=== PATIENT | female | born 1980 | race Caucasian/White ===

== ENCOUNTER 2016-08-19 21:03 | Emergency (ER) | payer OTHER ==
[~2016-08-19] VITALS: Ht 170.2 cm; Wt 137.0 kg
[~2016-08-19 21:03] MED LIST: ALL DAY ALLERGY10 M2 PO; ATARAX,VISTARIL25 MG PO; BENTYL20 MG PO; BUPROPION XL300 MG PO; DIABETA2.5 MG PO; GEODON80 MG PO; GLYBURIDE2.5 MG PO; Geodon PO; KENALOG,ARISTOC80 G1 TP; LATUDA40 MG PO; LEVITRA; MELOXICAM7.5 MG PO; METFORMIN HCL1000 MG PO; MICRONASE2.5 MG PO; MYCOSTATIN 100,60 ML PO; Motrin PO; NAPROSYN500 MG PO; NORCO 5/3251 TABLET PO; PEPCID20 MG PO; PREDNISONE20 MG PO; Percocet 5/325,Endoc PO; RISPERIDONE2 MG PO; SERTRALINE HCL50 MG PO; ZOLOFT25 MG PO; latuda
[2016-08-19 21:39] LABS: ADD MIUA? NO; BILIRUBIN NEGATIVE; BLOOD NEGATIVE; COLOR STRAW ((YELLOW)); GLUCOSE (STRIP) NEGATIVE; KETONES NEGATIVE; LEUKOCYTES NEGATIVE; NITRITE NEGATIVE; PROTEIN (STRIP) NEGATIVE; SPECIFIC GRAVITY 1.008 (1.000-1.030); UCUL ADDED? NO; UROBILINOGEN 0.2 MG/DL (0.2-1.0)
[2016-08-19 21:40] LABS: INTERNAL CONTROL VALID? YES
[2016-08-19 22:00] LABS: HEMATOCRIT 39.9 % (36.0-46.0); MCH 27.5 PG (29.0-34.0); MCHC 32.8 G/DL (30.0-36.0); MCV 83.8 FL (83-99); MEAN PLAT.VOLUME 9.8 uM^3 (9.5-12.4); PLATELET COUNT 207 K/uL (156-360); RBC DIS.WIDTH-CV 14.3 % (11.8-14.6); RBC DIS.WIDTH-SD 43.7 % (39-53); RED BLOOD COUNT 4.76 M/uL (3.80-5.20); WHITE BLOOD COUNT 8.5 K/uL (4.1-10.2)
[2016-08-19 23:04] LABS: ANION GAP 9 MEQ/L (2-14); CHLORIDE 104 MEQ/L (99-109); POTASSIUM 3.9 MEQ/L (3.7-5.4); SAMPLE HEMOLYSIS CHECK 0; SAMPLE ICTERIC CHECK 0; SAMPLE LIPEMIA CHECK 0; SODIUM 137 MEQ/L (136-147); TOTAL BILIRUBIN 0.6 MG/DL (0.0-1.0)
[2016-08-19 23:09] LABS: ALKALINE PHOSPHATASE 59 IU/L (3-129); GFR ESTIMATE (CALCULATED) > 59 mL/min/; GLUCOSE 119 mg/dL (70-99); LIPASE 16 U/L (1.0-51.0); UREA NITROGEN (BUN) 11 mg/dL (9-23)
[2016-08-20] MEDS ORDERED: NAPROSYN500 MG PO (00:16)
[2016-08-20 00:45] LABS: CREATINE KINASE 65 IU/L (1-294)
[2016-08-20 01:16] VITALS: BP 116/65
== END 2016-08-20 01:23 | disposition home or self-care (01) ==
LOC: EME 21:03
PROVIDERS: Physician Assistant
DX: R10.817 Generalized abdominal tenderness (principal); M54.9 Dorsalgia, unspecified; R03.0 Elevated blood-pressure reading, without diagnosis of hypertension; M79.1 Myalgia; K57.30 Diverticulosis of large intestine without perforation or abscess without bleeding; F32.9 Major depressive disorder, single episode, unspecified; F20.9 Schizophrenia, unspecified; E11.9 Type 2 diabetes mellitus without complications; F17.200 Nicotine dependence, unspecified, uncomplicated; Z79.84 Long term (current) use of oral hypoglycemic drugs
CPT/HCPCS: 74176; 80053; 81003; 82550; 83690; 84703; 85027; 87493; 99281; 99284; J1885

== ENCOUNTER 2016-11-19 11:58 | Emergency (ER) | payer OTHER ==
[~2016-11-19] VITALS: Ht 172.7 cm; Wt 138.9 kg
[2016-11-19 12:23] LABS: POINT-OF-CARE METER ID UU13113778
[2016-11-19 13:26] LABS: MCH 27.4 PG (29.0-34.0); MCHC 31.8 G/DL (30.0-36.0); MCV 86.1 FL (83-99); MEAN PLAT.VOLUME 9.6 uM^3 (9.5-12.4); PLATELET COUNT 177 K/uL (156-360); RBC DIS.WIDTH-CV 14.6 % (11.8-14.6); RBC DIS.WIDTH-SD 46.1 % (39-53); RED BLOOD COUNT 4.53 M/uL (3.80-5.20); WHITE BLOOD COUNT 6.3 K/uL (4.1-10.2)
[2016-11-19 13:34] LABS: CHLORIDE 107 mEq/L (99-109); POTASSIUM 4.3 mEq/L (3.7-5.4); SODIUM 140 mEq/L (136-147)
[2016-11-19 13:36] LABS: GLUCOSE 121 mg/dL (70-99)
[2016-11-19 13:38] LABS: ANION GAP 6 MEQ/L (2-14)
[2016-11-19 13:40] LABS: GFR ESTIMATE (CALCULATED) > 59 mL/min/
[2016-11-19 13:41] LABS: UREA NITROGEN (BUN) 9 mg/dL (9-23)
[2016-11-19 13:46] LABS: TROP-I INTERPRETATION NEGATIVE; TROPONIN-I < 0.01 ng/mL (0.0-0.30)
[2016-11-19 17:01] LABS: TROP-I INTERPRETATION NEGATIVE; TROPONIN-I < 0.01 ng/mL (0.0-0.30)
[2016-11-19 17:28] VITALS: BP 140/78
== END 2016-11-19 17:29 | disposition home or self-care (01) ==
LOC: EME 11:58
PROVIDERS: Physician Assistant Medical
DX: R07.9 Chest pain, unspecified (principal); J02.9 Acute pharyngitis, unspecified; B34.9 Viral infection, unspecified; R42 Dizziness and giddiness; R10.9 Unspecified abdominal pain; R19.7 Diarrhea, unspecified; R05 Cough; R31.9 Hematuria, unspecified; E11.9 Type 2 diabetes mellitus without complications; Z79.84 Long term (current) use of oral hypoglycemic drugs; F17.200 Nicotine dependence, unspecified, uncomplicated
CPT/HCPCS: 71020; 80048; 82948; 84484; 85027; 93005; 99281; 99283

== ENCOUNTER 2017-03-31 14:19 | Emergency (ER) | payer OTHER ==
[~2017-03-31] VITALS: Ht 172.7 cm; Wt 143.5 kg
[2017-03-31] MEDS ORDERED: MOTRIN600 MG PO (17:34)
[2017-03-31] MEDS ORDERED: NORCO 5/3251 TABLET PO (17:34)
[2017-03-31 18:08] VITALS: BP 136/62
== END 2017-03-31 18:09 | disposition home or self-care (01) ==
LOC: EME 14:19
DX: M25.561 Pain in right knee (principal)
CPT/HCPCS: 99281; 99285

== ENCOUNTER 2017-05-31 10:40 | Emergency (ER) | payer OTHER ==
[~2017-05-31] VITALS: Ht 172.7 cm; Wt 143.0 kg
[~2017-05-31 10:40] MED LIST changes: +MOTRIN600 MG PO
[2017-05-31 14:05] VITALS: BP 125/81
== END 2017-05-31 14:05 | disposition home or self-care (01) ==
LOC: EME 10:40
DX: M25.562 Pain in left knee (principal); G89.29 Other chronic pain; E11.9 Type 2 diabetes mellitus without complications; F41.9 Anxiety disorder, unspecified; F32.9 Major depressive disorder, single episode, unspecified; F20.9 Schizophrenia, unspecified; Z90.49 Acquired absence of other specified parts of digestive tract; F17.200 Nicotine dependence, unspecified, uncomplicated; Z79.84 Long term (current) use of oral hypoglycemic drugs
CPT/HCPCS: 73564; 99281; 99284; G8978 GP CH; G8979 GP CH; G8980 GP CH; G8987 GO CH; G8988 GO CH; G8989 GO CH

== ENCOUNTER 2017-07-13 10:36 | Emergency (ER) | payer OTHER ==
[~2017-07-13] VITALS: Ht 172.7 cm; Wt 138.4 kg
[2017-07-13 11:06] LABS: BASOPHIL (%) 0.2 % (0-1); EOSINOPHIL (%) 0.7 % (0-5); EOSINOPHIL COUNT 0.1 K/uL (0-0.3); HEMATOCRIT 41.5 % (36.0-46.0); HEMOGLOBIN 13.6 G/DL (11.9-15.5); IMMATURE GRANULOCYTE (%) 0.5 % (0.0-0.7); LYMPHOCYTE (%) 13.1 % (15-42); LYMPHOCYTE COUNT 1.4 K/uL (1.0-2.8); MCH 26.2 PG (29.0-34.0); MCHC 32.8 G/DL (30.0-36.0); MONOCYTE (%) 4.1 % (3-12); MONOCYTE COUNT 0.4 K/uL (0-0.8); NEUTROPHIL (%) 81.4 % (45-76); NEUTROPHIL COUNT 8.7 K/uL (1.8-6.4); PLATELET COUNT 334 K/uL (156-360); RBC DIS.WIDTH-CV 14.7 % (11.8-14.6); RBC DIS.WIDTH-SD 42.8 % (39-53); RED BLOOD COUNT 5.19 M/uL (3.80-5.20); WHITE BLOOD COUNT 10.7 K/uL (4.1-10.2)
[2017-07-13 11:21] LABS: ALBUMIN 4.4 g/dL (3.2-4.8); CHLORIDE 103 mEq/L (99-109); POTASSIUM 3.9 mEq/L (3.7-5.4); SODIUM 137 mEq/L (136-147)
[2017-07-13 11:22] LABS: MAGNESIUM 2.2 mg/dL (1.3-2.7)
[2017-07-13 11:24] LABS: GLUCOSE 161 mg/dL (70-99); TOTAL PROTEIN 7.8 g/dL (6.4-8.3)
[2017-07-13 11:26] LABS: TOTAL BILIRUBIN 1.4 mg/dL (0.0-1.0)
[2017-07-13 11:27] LABS: ALKALINE PHOSPHATASE 85 IU/L (3-129)
[2017-07-13 11:28] LABS: CREATININE 0.8 mg/dL (0.6-1.3); GFR ESTIMATE (CALCULATED) > 59 mL/min/
[2017-07-13 11:29] LABS: AST (GOT) 18 IU/L (2-34); UREA NITROGEN (BUN) 9 mg/dL (9-23)
[2017-07-13 11:30] LABS: ALT (GPT) 14 IU/L (3-49)
[2017-07-13 11:31] LABS: LIPASE 6 U/L (1.0-51.0)
[2017-07-13 11:37] LABS: QUANTITATIVE HCG < 4.0 MIU/ML
[2017-07-13 12:35] LABS: SOURCE SWAB
[2017-07-13 13:10] LABS: APPEARANCE SL.HAZY ((CLEAR)); BILIRUBIN NEGATIVE; BLOOD SMALL; COLOR YELLOW ((YELLOW)); GLUCOSE (STRIP) NEGATIVE; KETONES 80; LEUKOCYTES NEGATIVE; NITRITE NEGATIVE; PROTEIN (STRIP) NEGATIVE; SPECIFIC GRAVITY 1.017 (1.000-1.030); UROBILINOGEN 0.2 MG/DL (0.2-1.0)
[2017-07-13 13:14] LABS: BACTERIA RARE /HPF; EPITHELIAL CELLS RARE /HPF; MUCUS 1+ /LPF; RED BLOOD CELLS 20-30 /HPF (0-5); UCUL ADDED? NO; WHITE BLOOD CELLS 0-5 /HPF (0-5)
[2017-07-13] MEDS ORDERED: PERCOCET 5/31 TABLET PO (14:20)
[2017-07-13] MEDS ORDERED: ZOFRAN ODT4 MG PO (14:20)
[2017-07-13] MEDS ORDERED: MOTRIN800 MG PO (14:20)
[2017-07-13 14:31] VITALS: BP 139/87
== END 2017-07-13 14:34 | disposition home or self-care (01) ==
LOC: EME 10:36
PROVIDERS: Emergency Medicine
DX: N13.2 Hydronephrosis with renal and ureteral calculous obstruction (principal); E11.9 Type 2 diabetes mellitus without complications; Z79.4 Long term (current) use of insulin; F41.9 Anxiety disorder, unspecified; F32.9 Major depressive disorder, single episode, unspecified; F20.9 Schizophrenia, unspecified; F17.200 Nicotine dependence, unspecified, uncomplicated; Z90.49 Acquired absence of other specified parts of digestive tract
CPT/HCPCS: 74177; 80053; 81003; 83690; 83735; 84702; 85025; 87210; 87491; 87591; 99281; 99285; J1630; J2405; J7040

== ENCOUNTER 2017-08-27 17:00 | Emergency (ER) | payer OTHER ==
[~2017-08-27] VITALS: Ht 172.7 cm; Wt 144.0 kg
[~2017-08-27 17:00] MED LIST changes: +MOTRIN800 MG PO; +PERCOCET 5/31 TABLET PO; +ZOFRAN ODT4 MG PO
[2017-08-27 20:20] LABS: APPEARANCE CLEAR ((CLEAR)); BILIRUBIN NEGATIVE; BLOOD NEGATIVE; COLOR YELLOW ((YELLOW)); GLUCOSE (STRIP) NEGATIVE; KETONES NEGATIVE; LEUKOCYTES NEGATIVE; NITRITE NEGATIVE; PROTEIN (STRIP) NEGATIVE; SPECIFIC GRAVITY 1.028 (1.000-1.030); UCUL ADDED? NO; UROBILINOGEN 0.2 MG/DL (0.2-1.0)
[2017-08-27] MEDS ORDERED: FLEXERIL10 MG PO (21:10)
[2017-08-27] MEDS ORDERED: MEDROL DOSEPAK4 MG PO (21:10)
[2017-08-27 21:22] VITALS: BP 131/77
== END 2017-08-27 21:23 | disposition home or self-care (01) ==
LOC: EME 17:00
PROVIDERS: Physician Assistant
DX: M54.16 Radiculopathy, lumbar region (principal); M54.5 Low back pain; G89.29 Other chronic pain; F32.9 Major depressive disorder, single episode, unspecified; E11.9 Type 2 diabetes mellitus without complications; Z79.84 Long term (current) use of oral hypoglycemic drugs; F41.9 Anxiety disorder, unspecified; F20.9 Schizophrenia, unspecified; F17.200 Nicotine dependence, unspecified, uncomplicated
CPT/HCPCS: 81003; 81025; 99281; 99284; J7512